=== PATIENT | male | born 2000 | race Caucasian/White ===

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

== ENCOUNTER 2019-08-04 21:21 | Emergency (ER) | payer OTHER ==
[~2019-08-04] VITALS: Ht 182.9 cm; Wt 85.0 kg
--- NOTE | 2019-08-04 21:48 | PHYS DOC ---
Past History Past Medical History: No Pertinent History Past Surgical History: No Surgical History Additional Past Surgical Histo: wisdom teeth, LT wrist Alcohol Use: Occasionally Drug Use: None Adult General Chief Complaint Chief Complaint: NAUSEA/VOMITING/DIARRHEA HPI HPI 19-year-old male presents with vomiting. The patient one episode of vomiting yesterday evening. He wasn't feeling great today, but he tried to eat. After he ate he had vomiting again. He's had several episodes since that time. He is concerned about getting dehydrated. He's had some chills but no measured fever. No known sick contacts. Review of Systems Review of Systems Constitutional: Denies fever or chills [] Eyes: Denies change in visual acuity, redness, or eye pain [] HENT: Denies nasal congestion or sore throat [] Respiratory: Denies cough or shortness of breath [] Cardiovascular: No additional information not addressed in HPI [] GI: Lower abdominal pain, nausea, vomiting. Denies bloody stools or diarrhea [] : Denies dysuria or hematuria [] Musculoskeletal: Denies back pain or joint pain [] Integument: Denies rash or skin lesions [] Neurologic: Denies headache, focal weakness or sensory changes [] Endocrine: Denies polyuria or polydipsia [] All other systems were reviewed and found to be within normal limits, except as documented in this note. Current Medications Current Medications Current Medications Medications (Trade) Dose Ordered Sig/Codey Start Time Stop Time Status Last Admin Dose Admin Ondansetron HCl (Zofran) 4 mg 1X ONCE 08/04/19 22:00 08/04/19 22:01 Sodium Chloride 1,000 ml @ 1,000 mls/hr 1X ONCE 08/04/19 22:00 08/04/19 22:59 Allergies Allergies Allergies Coded Allergies Type Severity Reaction Last Updated Verified No Known Drug Allergies 06/05/17 No Physical Exam Physical Exam Constitutional: Well developed, well nourished, no acute distress, non-toxic appearance. [] HENT: Normocephalic, atraumatic, bilateral external ears normal, oropharynx moist, no oral exudates, nose normal. [] Eyes: PERRLA, EOMI, conjunctiva normal, no discharge. [] Neck: Normal range of motion, no tenderness, supple, no stridor. [] Cardiovascular: Heart rate regular rhythm, no murmur [] Lungs & Thorax: Bilateral breath sounds clear to auscultation [] Abdomen: Bowel sounds normal, soft, no tenderness, no masses, no pulsatile masses. [] Skin: Warm, dry, no erythema, no rash. [] Back: No tenderness, no CVA tenderness. [] Extremities: No tenderness, no cyanosis, no clubbing, ROM intact, no edema. [] Neurologic: Alert and oriented X 3, normal motor function, normal sensory function, no focal deficits noted. [] Psychologic: Affect normal, judgement normal, mood normal. [] Current Patient Data Vital Signs Vital Signs Date Time Temp Pulse Resp B/P (MAP) Pulse Ox O2 Delivery O2 Flow Rate FiO2 08/04/19 21:37 97.6 69 20 159/69 (99) 100 Room Air EKG EKG [] Radiology/Procedures Radiology/Procedures [] Impressions: One view abdomen pelvis HISTORY: Abdominal pain Supine AP view abdomen pelvis There is air seen scattered throughout portions of the colon. There is a relative paucity of small bowel gas. There is no obvious free air. IMPRESSION: No acute findings. Electronically signed by: Jai Mari III, MD (08/04/2019 10:01 PM) [id number] DICTATED AND SIGNED BY: JAI MARI III, MD DATE: 08/04/192200 CC: BIANCA QUAN DO; PCP,NO ~ Course & Med Decision Making Course & Med Decision Making Pertinent Labs and Imaging studies reviewed. (See chart for details) For the patient's nausea gave 4 mg of Zofran IV and a liter of normal saline. He's had no further vomiting. His KUB is negative for acute findings. I will discharge him with a prescription for Zofran. He is stable for discharge at this time. [] Dragon Disclaimer Dragon Disclaimer This electronic medical record was generated, in whole or in part, using a voice recognition dictation system. Departure Departure: Impression: Primary Impression: Nausea & vomiting Disposition: 01 HOME, SELF-CARE Condition: STABLE Referrals: PCP,NO (PCP) Patient Instructions: Nausea and Vomiting, Sxee-sy-Fuht Scripts Ondansetron (ONDANSETRON ODT) 4 Mg Tab.rapdis 1 TAB PO PRN Q6-8HRS PRN for VOMITING, #16 TAB Prov: BIANCA QUAN DO 08/04/19 Problem Qualifiers Primary Impression: Nausea & vomiting Vomiting type: unspecified Vomiting Intractability: non-intractable Qualified Codes: R11.2 - Nausea with vomiting, unspecified BIANCA QUAN DO Aug 04, 2019 21:48
[2019-08-04] MEDS ORDERED: ONDANSETRON PF 4 MG/2 ML VIAL. IVP ONE (22:00)
[2019-08-04] MEDS ORDERED: IV NORMAL SALINE 1,000ML 1,000 ML IV ONE (22:00)
--- NOTE | 2019-08-04 22:04 | RAD ---
One view abdomen pelvis HISTORY: Abdominal pain Supine AP view abdomen pelvis There is air seen scattered throughout portions of the colon. There is a relative paucity of small bowel gas. There is no obvious free air. IMPRESSION: No acute findings. Electronically signed by: Alex Mari III, MD (08/04/2019 10:01 PM) [id number]
[2019-08-04 22:28] LABS: BASO % 0 % (0-3); EOS % 0 % (0-3); HEMATOCRIT 42.5 % (39.0-53.0); HEMOGLOBIN 14.6 g/dL (13.0-17.5); LYMPH # 0.9 x10^3/uL (1.0-4.8); LYMPH % 13 % (24-48); MEAN CORPUSCULAR HEMOGLOBIN 31 pg (25-35); MEAN CORPUSCULAR HGB CONC 34 g/dL (31-37); MEAN CORPUSCULAR VOLUME 89 fL (79-100); MONO # 0.3 x10^3/uL (0.0-1.1); MONO % 4 % (0-9); NEUT # 5.8 x10^3uL (1.8-7.7); NEUT % 82 % (31-73); PLATELET COUNT 234 x10^3/uL (140-400); RED BLOOD COUNT 4.76 x10^6/uL (4.30-5.70); RED CELL DISTRIBUTION WIDTH 12.7 % (11.5-14.5)
[2019-08-04] MEDS ORDERED: ONDA4TAB12 PO (22:34)
[2019-08-04 22:36] LABS: CALCIUM 9.7 mg/dL (8.5-10.1); CREATININE 1.2 mg/dL (0.7-1.3); GFR 76.4; POTASSIUM 3.9 mmol/L (3.5-5.1)
[2019-08-04 22:39] VITALS: BP 148/75
[2019-08-04 22:42] LABS: ALBUMIN 4.8 g/dL (3.4-5.0); ALBUMIN/GLOBULIN RATIO 1.4 (1.0-1.7); TOTAL BILIRUBIN 0.9 mg/dL (0.2-1.0); TOTAL PROTEIN 8.2 g/dL (6.4-8.2)
[2019-08-04] MEDS ORDERED: PROCHLORPERAZINE 10 MG/2 ML VIAL. ONE (22:43)
[2019-08-04] MEDS ORDERED: PROCHLORPERAZINE 10 MG/2 ML VIAL. IV ONE (23:00)
== END 2019-08-04 22:54 | disposition home or self-care (01) ==
LOC: ER 21:21
DX: R11.2 Nausea with vomiting, unspecified (principal); R10.30 Lower abdominal pain, unspecified
CPT/HCPCS: 36415; 74018; 80053; 85025; 96361; 96374; 96375; 99284; J0780; J2405; J7030